=== PATIENT | male | born 2000 | race Caucasian/White ===

== ENCOUNTER 2020-08-27 12:13 | Emergency (ER) | payer OTHER ==
[~2020-08-27] VITALS: Ht 188 cm; Wt 109.1 kg
--- NOTE | 2020-08-27 14:31 | REP ---
INDICATION: chest pain COMPARISON: None. TECHNIQUE: Portable AP view of the chest FINDINGS: The mediastinum and cardiac silhouette are within normal limits for portable technique. The lung murillo are clear without acute consolidation, effusion, or pneumothorax. Skeletal structures are intact. IMPRESSION: No acute cardiopulmonary process appreciated. <Electronically signed by Ravinder Grullon > 08/27/20 [id number]
[2020-08-27 14:35] LABS: BASO % 0.4 % (0.0-1.0); EOS # 0.1 10^3/uL (0.0-0.5); EOS % 0.8 % (0.0-3.0); HEMATOCRIT 47.8 % (42.0-52.0); HEMOGLOBIN 16.5 g/dl (13.5-17.5); LYMPH # 2.1 10^3/uL (1.5-5.0); LYMPH % 24.9 % (24.0-44.0); MEAN CORPUSCULAR HGB CONC 34.5 g/dl (32.0-36.5); MEAN CORPUSCULAR VOLUME 86.9 fl (80.0-96.0); MONO # 0.5 10^3/uL (0.0-0.8); MONO % 6.4 % (2.0-8.0); NEUTROPHILS # 5.7 10^3/uL (1.5-8.5); NEUTROPHILS % 67.3 % (36.0-66.0); PLATELET COUNT, AUTOMATED 182 10^3/uL (150-450); WHITE BLOOD COUNT 8.4 10^3/uL (4.0-10.0)
[2020-08-27 15:02] LABS: BLOOD UREA NITROGEN 14 MG/DL (7-18); CALCIUM LEVEL 9.9 MG/DL (8.5-10.1); CARBON DIOXIDE LEVEL 28 MEQ/L (21-32); CHLORIDE LEVEL 106 MEQ/L (98-107); CK-MB VALUE MASS 1.3 NG/ML (<3.6); CPK CREATINE PHOSPHOKINASE 233 U/L (39-308); GLOMERULAR FILTRATION RATE > 60.0 (>60); GLUCOSE, FASTING 92 MG/DL (70-100); MB/CK RELATIVE INDEX 0.56 (< OR =4); POTASSIUM SERUM 4.6 MEQ/L (3.5-5.1); SODIUM LEVEL 138 MEQ/L (136-145); TROPONIN I < 0.02 NG/ML (< 0.10)
[2020-08-27] MEDS ORDERED: KETOROLAC 30 MG/ML 1ML VIAL IV ONE (15:55)
[2020-08-27 16:12] VITALS: BP 124/77
--- NOTE | 2020-08-27 20:55 | ECGEPIP ---
[facility] - ED Test Date: 2020-08-27 Pat Name: VERONIKA CAST Department: Room: - Gender: Male [employer] App[employer]ice: MIYA : 2000 Requested By: Vaishali Montes Order Number: [id number] Reading MD: Vaishali Montes Measurements Intervals Liguori Rate: 61 P: 29 MO: 156 QRS: 68 QRSD: 90 T: 50 QT: 384 QTc: 386 Interpretive Statements Sinus rhythm with premature atrial complexes No prior Electronically Signed on 08-27-2020 20:55:24 EDT by Vaishali Montes
== END 2020-08-27 16:46 | disposition home or self-care (01) ==
LOC: M ED 12:13
DX: R07.89 Other chest pain (principal)
CPT/HCPCS: 36415; 71045; 80048; 82550; 82553; 84484; 85025; 85379; 86140; 93005; 96374; 99284; J1885

== ENCOUNTER 2021-03-28 19:22 | Emergency (ER) | payer OTHER ==
[~2021-03-28] VITALS: Ht 188 cm; Wt 104.5 kg
[2021-03-28] MEDS ORDERED: NORCO, ANEXSIA 5/325MG TABLET (HYDROcodone/ACETAMINOPHEN) PO ONE (20:20)
[2021-03-28] MEDS ORDERED: NAPR-837 PO (20:59)
--- NOTE | 2021-03-28 21:04 | REPVR ---
PROCEDURE INFORMATION: Exam: XR Right Shoulder Exam date and time: 03/28/2021 8:05 PM Age: 20 years old Clinical indication: Pain; Shoulder; Right; Additional info: Fall on right shoulder; Pain TECHNIQUE: Imaging protocol: XR Right shoulder. Views: 2 or more views. COMPARISON: CR PORTABLE CHEST X-RAY 08/27/2020 2:21 PM FINDINGS: Bones/joints: Normal. No fracture or dislocation. Soft tissues: Normal. IMPRESSION: Negative right shoulder. Electronically signed by: Cirilo Powell On 03/28/2021 21:04:15 PM
--- NOTE | 2021-03-28 21:06 | REPVR ---
PROCEDURE INFORMATION: Exam: XR Right Ribs with PA Chest Exam date and time: 03/28/2021 8:49 PM Age: 20 years old Clinical indication: Chest wall pain; Right; Additional info: Trauma TECHNIQUE: Imaging protocol: XR Right ribs with PA chest. Views: 3 views COMPARISON: CR PORTABLE CHEST X-RAY 08/27/2020 2:21 PM FINDINGS: Lungs: Unremarkable. No consolidation. Pleural spaces: Unremarkable. No pleural effusion. No pneumothorax. Heart/Mediastinum: Unremarkable. No cardiomegaly. Bones/joints: Unremarkable. No right rib fractures. IMPRESSION: 1. Negative right ribs. 2. Negative chest. Electronically signed by: Cirilo Powell On 03/28/2021 21:05:59 PM
[2021-03-28 21:16] VITALS: BP 139/85
== END 2021-03-28 21:19 | disposition home or self-care (01) ==
LOC: M ED 19:22
DX: S43.51XA Sprain of right acromioclavicular joint, initial encounter (principal); W19.XXXA Unspecified fall, initial encounter; Y92.009 Unspecified place in unspecified non-institutional (private) residence as the place of occurrence of the external cause; Y93.9 Activity, unspecified; Y99.9 Unspecified external cause status